=== PATIENT | female | born 1955 | race American Indian/Alaskan Native ===

== ENCOUNTER 2016-12-20 09:45 | Day surgery (SDC) | payer MEDICARE ==
[~2016-12-20] VITALS: Ht 175.3 cm; Wt 82.5 kg
[2016-12-20] MEDS ORDERED: SODIUM CHLORIDE 0.9% 1,000 ML IV SCH (10:20)
[2016-12-20] MEDS ORDERED: PLEASE ENTER HEIGHT AND WEIGHT MC SCH (10:30)
[2016-12-20] MEDS ORDERED: AMLO10TA2 PO (10:36)
[2016-12-20] MEDS ORDERED: ACET325T26 PO (10:36)
[2016-12-20] MEDS ORDERED: CLOT15CR9 TP (10:36)
[2016-12-20] MEDS ORDERED: FURO-92 PO (10:36)
[2016-12-20] MEDS ORDERED: ISOS30TA8 PO (10:36)
[2016-12-20] MEDS ORDERED: FLUT25PO12 IH (10:36)
[2016-12-20] MEDS ORDERED: INSU100V8 SQ (10:36)
[2016-12-20] MEDS ORDERED: FOLI0.8T3 PO (10:36)
[2016-12-20] MEDS ORDERED: GABA100C8 PO (10:36)
[2016-12-20] MEDS ORDERED: [UNRECOGNIZED DRUG - CODE] TP (10:36)
[2016-12-20] MEDS ORDERED: PRAV20TA2 PO (10:36)
[2016-12-20] MEDS ORDERED: ALBU90AE IH (10:36)
[2016-12-20] MEDS ORDERED: FOLI1CAP PO (10:36)
[2016-12-20] MEDS ORDERED: LOSA100T6 PO (10:36)
[2016-12-20] MEDS ORDERED: ASPI-496 PO (10:36)
[2016-12-20] MEDS ORDERED: FERR210T PO (10:36)
[2016-12-20 10:39] VITALS: BP 182/87
[2016-12-20] MEDS ORDERED: HEPARIN 1,000 UNITS/ML, 10ML ONE (11:27)
[2016-12-20] MEDS ORDERED: VERAPAMIL 2.5 MG/ML, 2ML ONE (11:27)
[2016-12-20] MEDS ORDERED: FENTANYL PF 100 MCG/2ML ONE (11:27)
[2016-12-20] MEDS ORDERED: MIDAZOLAM 1 MG/ML, 5ML ONE (11:27)
[2016-12-20] MEDS ORDERED: NITROGLYCERIN 5 MG/ML, 10ML ONE (11:27)
[2016-12-20] MEDS ORDERED: LIDOCAINE 2%, 20ML ONE (11:28)
== END 2016-12-20 15:15 | disposition home or self-care (01) ==
LOC: CACL 09:45
PROVIDERS: ATTEND Internal Medicine Cardiovascular Disease
DX: I25.10 Atherosclerotic heart disease of native coronary artery without angina pectoris (principal); I27.2 Other secondary pulmonary hypertension; E11.22 Type 2 diabetes mellitus with diabetic chronic kidney disease; I12.0 Hypertensive chronic kidney disease with stage 5 chronic kidney disease or end stage renal disease; N18.6 End stage renal disease; Z99.2 Dependence on renal dialysis; I45.10 Unspecified right bundle-branch block; Z87.891 Personal history of nicotine dependence; Z88.1 Allergy status to other antibiotic agents; Z88.8 Allergy status to other drugs, medicaments and biological substances; Z82.49 Family history of ischemic heart disease and other diseases of the circulatory system; Z98.890 Other specified postprocedural states
CPT/HCPCS: 93460; 99156; 99157; C1769; C1894; J1644; J2250; J3010; J3490; 99152; 99153